=== PATIENT | female | born 1980 | race Caucasian/White ===

== ENCOUNTER 2017-06-25 08:41 | Emergency (ER) | payer MEDICAID ==
[~2017-06-25] VITALS: Ht 152.4 cm; Wt 46.7 kg
[2017-06-25 09:16] VITALS: BP_SYST 131
[2017-06-25] MEDS ORDERED: DIPH-TET-PERTUS Vaccine 0.5 ML VIAL (ADACEL) IM ONE (10:00)
[2017-06-25 10:18] VITALS: BP_SYST 125
== END 2017-06-25 10:18 | disposition home or self-care (01) ==
LOC: SED 08:41
DX: S01.21XA Laceration without foreign body of nose, initial encounter (principal); W01.0XXA Fall on same level from slipping, tripping and stumbling without subsequent striking against object, initial encounter; Y93.89 Activity, other specified; Y92.89 Other specified places as the place of occurrence of the external cause; Y99.8 Other external cause status
CPT/HCPCS: 90715; 99283